=== PATIENT | female | born 1945 | race Caucasian/White ===

== ENCOUNTER → 2016-09-09 | Outpatient (CLI) | payer OTHER ==
[~2016-09-09] MED LIST: ACYCLOVIR400 MG PO; ALDACTONE25 MG; ALDACTONE25 MG PO; AMARYL1 M1 PO; AMARYL1 MG PO; AMIODARONE HCL200 MG PO; AMOXIL500 MG PO; ASMANEX HF100 MCG/Ac INH; ATIVAN1 MG PO; AUGMENTIN 875875 MG PO; AVPAK AZITHROM250 MG PO; BACTRIM DS 8001 TA1 PO; BACTROBAN CREAM15 GM T; BENZONATATE100 MG PO; BREO ELLIPTA 11 EACH IH; CALCIUM 500 MG; CETIRIZINE10 MG PO; CHOLECALCIFEROL; CIPRO500 MG PO; CORTISPORIN T; DECADRON4 MG PO; DEXAMETHASONE PO; DEXAMETHASONE4 MG PO; FLECAINIDE ACE150 M1 PO; FLUCONAZOLE200 MG PO; GEMFIBROZIL600 MG PO; GLUCOPHAGE500 MG PO; HYDROCODONE BIT1 T11 PO; KEFLEX500 MG PO; LASIX20 MG PO; LISINOPRIL5 MG; LISINOPRIL5 MG PO; LOPRESSOR50 MG PO; MAGNESIUM OXID400 MG PO; METFORMIN500 MG; MULTAQ400 MG PO; MULTI VIT; MULTIVITAMIN1 CTB; NYSTATIN100000 U/G TP; OFLOXACIN 10 ML10 M1 OP; ONGLYZA5 MG PO; OXYCONTIN10 M1 PO; OXYCONTIN10 MG PO; OYSTER CALCIUM500 M1; POMALYST PO; POTASSIUM CHLO10 ME4 PO; PREDNISONE20 MG PO; PRILOSEC20 M2 PO; PROCHLORPERAZIN10 MG PO; REVLIMID25 MG PO; ROBITUSSIN AC 110 ML PO; SPIRONOLACTONE25 MG PO; TENORMIN25 MG PO; TOPROL XL25 MG PO; VICODIN 5/500 505 MG PO; VIT; VIT D3; VITAMIN B1100 MCG/ML IM; VITAMIN B11000 MCG/M IM; VITAMIN B125000 MCG PO; VITAMIN C1000 M5 PO; VITAMIN D2000 IU; VITAMIN D2000 IU PO; VITAMIN D31000 IU PO; VITAMIN D5000 IU; XANAX0.25 MG PO; XANAX0.5 MG PO; XARE20MG PO; ZOFRAN4 MG PO; ZYRTEC10 MG PO; [UNRECOGNIZED DRUG - OTHER] IJ; [UNRECOGNIZED DRUG - OTHER] PO
== END | disposition home or self-care (01) ==
LOC: CT 10:51
DX: J32.9 Chronic sinusitis, unspecified (principal)

== ENCOUNTER 2016-11-08 11:18 | Emergency (ER) | payer OTHER ==
[~2016-11-08] VITALS: Ht 165.1 cm; Wt 112.5 kg
[2016-11-08 12:02] LABS: HEMATOCRIT 30.3 % (37.0-47.0); HEMOGLOBIN 9.9 g/dl (12.0-16.0); MEAN CELL VOLUME 97.1 fl (81.0-99.0); MEAN CORPUSCULAR HGB 31.7 pg (27.0-31.0); MEAN CORPUSCULAR HGB CONC 32.7 g/dl (33.0-37.0); MEAN PLATELET VOLUME 10.3 fl (9.6-12.3); PLATELET COUNT AUTOMATED 134 10*3/uL (130-400); RED BLOOD COUNT 3.12 10*6/uL (4.10-5.10); RED CELL DISTRI WIDTH 16.2 % (0-14.5); WHITE BLOOD COUNT 2.2 10*3/uL (4.8-10.8)
[2016-11-08 12:24] LABS: ALBUMIN 3.1 gm/dl (3.1-4.5); ALKALINE PHOSPHATASE 112 U/L (45-117); ATYPICAL LYMPHS 1 % (0-0); BASOPHILS 1 % (0-1); BILIRUBIN, TOTAL 0.6 mg/dl (0.2-1.0); BUN 9 mg/dl (7-24); CARBON DIOXIDE 29 mmol/L (21-32); CHLORIDE 103 mmol/L (98-107); EOSINOPHILS 1 % (1-4); EST GLOM FILT AFRICAN AMERICAN > 60 ml/min; GLUCOSE 94 mg/dL (65-99); LYMPHOCYTE # 0.2 10*3/uL (1.3-4.4); MAGNESIUM 1.7 mg/dL (1.5-2.1); METAMYELOCYTES 1 % (0-0); MONOCYTE # 0.3 10*3/uL (0.1-1.0); MYELOCYTES 2 % (0-0); NEUTROPHIL # 1.6 10*3/uL (2.3-7.9); NEUTROPHILS 72 % (47-73); POTASSIUM 3.5 mmol/L (3.5-5.1); SGOT/AST 24 IU/L (3-35); SGPT/ALT 22 U/L (12-78); SODIUM 139 mmol/L (136-145); TOTAL CELLS COUNTED 100 #CELLS; TOTAL PROTEIN 6.2 gm/dL (6.4-8.2)
[2016-11-08 12:25] LABS: PLATELET SUFFICIENCY LOW (NORMAL)
[2016-11-08 12:26] LABS: OVALOCYTES FEW
[2016-11-08 12:35] LABS: TROPONIN I < 0.015 ng/ml (<0.045)
[2016-11-08] MEDS ORDERED: ZITHROMAX250 MG PO (13:13)
[2016-11-08] MEDS ORDERED: DELTASONE20 M1 PO (13:13)
== END 2016-11-08 13:14 | disposition home or self-care (01) ==
LOC: ED 11:18
PROVIDERS: Family Medicine Adult Medicine
DX: J40 Bronchitis, not specified as acute or chronic (principal); I48.91 Unspecified atrial fibrillation; Z90.89 Acquired absence of other organs; Z98.890 Other specified postprocedural states; Z79.899 Other long term (current) drug therapy

== ENCOUNTER → 2016-12-16 | Outpatient (CLI) | payer OTHER ==
[~2016-12-16] MED LIST changes: +DELTASONE20 M1 PO; +ZITHROMAX250 MG PO
== END | disposition home or self-care (01) ==
LOC: RAD 10:15
DX: J43.9 Emphysema, unspecified (principal); E11.9 Type 2 diabetes mellitus without complications; I11.0 Hypertensive heart disease with heart failure; I50.9 Heart failure, unspecified; I48.91 Unspecified atrial fibrillation; M47.894 Other spondylosis, thoracic region

== ENCOUNTER → 2017-03-21 | Day surgery (SDC) | payer OTHER ==
[~2017-03-21] VITALS: Ht 165.1 cm; Wt 108.0 kg
[~2017-03-21] MED LIST changes: +BREO ELLIPTA 11 EACH INH
--- NOTE | ~2017-03-21 | O ---
[place], [place] OPERATIVE NOTE NAME: CAESAR DALAL UNIT #: [id number] ROOM: DOCTOR: MAIKEL MARIN MD BIRTHDATE: [birth year] DOS: 03/21/2017 PREOPERATIVE DIAGNOSIS: Cataract, right eye. POSTOPERATIVE DIAGNOSIS: Cataract, right eye. OPERATION: Extracapsular cataract extraction by phacoemulsification with posterior chamber intraocular lens implantation, right eye. ANESTHESIA: Monitored standby. OPERATIVE FINDINGS AND PROCEDURE: 2% Xylocaine topical anesthetic gel was applied to the eye in the preop area. The patient was taken to the operating room and prepped and draped in the standard fashion for sterile intraocular surgery. A time out procedure was performed verifying correct patient, correct site and corrects lens with Reji Marin M.D. The operating microscope was swung into position and the lid speculum was inserted. Using a Keli paracentesis blade, a paracentesis was made through clear cornea. Viscoelastic was used to fill the anterior chamber. Using a metal keratome a 2.4 mm self-sealing clear corneal cataract incision was made temporally at the limbus. Using a pre-bent 25 gauge cystotome needle, a standard continuous curvilinear capsulorrhexis was performed. The anterior capsule was removed with forceps. The lens nucleus was hydrodissected and phacoemulsified in the posterior chamber. Cortical material was removed with the irrigation aspiration hand piece and the posterior capsule was then polished with a curet under irrigation. The posterior chamber and capsular bag were filled with viscoelastic. A posterior chamber intraocular lens manufactured by: [employer], Model #[id number], and 14.5 diopters in strength were then inserted into the posterior chamber and within the capsular bag using the lens cartridge and injector system. Viscoelastic was removed using the irrigation aspiration handpiece. The anterior chamber was filled with balanced salt solution through the paracentesis. Both the paracentesis site and cataract incisions were hydrated with BSS and verified to be water-tight and self-sealing. Cefuroxime 1 mg/0.1 mL was injected into the anterior chamber through the paracentesis site. The incision checked to be water-tight using a Weck-Ryann sponge. The integrity of the cataract wound and ocular tension were checked. Lid speculum and drapes were removed. The patient was transferred from the operating room to the recovery room in satisfactory condition. [place], [place] OPERATIVE NOTE NAME: CAESAR DALAL UNIT #: [id number] ROOM: DOCTOR: MAIKEL MARIN MD BIRTHDATE: [birth year] MAIKEL MARIN MD CM:OPRECORD:OPERATIVE NOTE [id number] MAIKEL MARIN MD 03/21/17 1151 interface
[2017-03-21 08:59] VITALS: BP 124/67
[2017-03-21 09:50] VITALS: BP 113/53
[2017-03-21 10:05] VITALS: BP 121/63
[2017-03-21 10:20] VITALS: BP 113/53
== END | disposition home or self-care (01) ==
LOC: SDC 03-19 12:30
DX: H26.9 Unspecified cataract (principal); I11.0 Hypertensive heart disease with heart failure; I50.9 Heart failure, unspecified; J45.909 Unspecified asthma, uncomplicated; I48.91 Unspecified atrial fibrillation; Z79.01 Long term (current) use of anticoagulants; E11.9 Type 2 diabetes mellitus without complications; Z98.890 Other specified postprocedural states; Z79.84 Long term (current) use of oral hypoglycemic drugs; Z79.899 Other long term (current) drug therapy; Z85.79 Personal history of other malignant neoplasms of lymphoid, hematopoietic and related tissues; M19.90 Unspecified osteoarthritis, unspecified site; Z80.9 Family history of malignant neoplasm, unspecified; Z83.3 Family history of diabetes mellitus; Z82.49 Family history of ischemic heart disease and other diseases of the circulatory system

== ENCOUNTER → 2017-04-10 | Outpatient (CLI) | payer OTHER | END | disposition home or self-care (01) | LOC: RAD 09:43 | DX: I48.91 Unspecified atrial fibrillation (principal); J45.909 Unspecified asthma, uncomplicated; I50.9 Heart failure, unspecified; E11.9 Type 2 diabetes mellitus without complications ==

== ENCOUNTER → 2017-05-16 | Day surgery (SDC) | payer OTHER ==
[~2017-05-16] VITALS: Ht 165.1 cm; Wt 105.7 kg
[~2017-05-16] MED LIST changes: +ALLER-FLO15.8 ML NAS; +CARTIA XT240 MG PO; +MEGA BIOTIN10000 MCG PO
--- NOTE | ~2017-05-16 | O ---
[place], [place] OPERATIVE NOTE NAME: CAESAR DALAL UNIT #: [id number] ROOM: DOCTOR: MAIKEL MARIN MD BIRTHDATE: [birth year] DOS: 05/16/2017 PREOPERATIVE DIAGNOSIS: Cataract, left eye. POSTOPERATIVE DIAGNOSIS: Cataract, left eye. OPERATION: Extracapsular cataract extraction by phacoemulsification with posterior chamber intraocular lens implantation, left eye. ANESTHESIA: Monitored standby. OPERATIVE FINDINGS AND PROCEDURE: 2% Xylocaine topical anesthetic gel was applied to the eye in the preop area. The patient was taken to the operating room and prepped and draped in the standard fashion for sterile intraocular surgery. A time out procedure was performed verifying correct patient, correct site and corrects lens with Reji Marin M.D. The operating microscope was swung into position and the lid speculum was inserted. Using a Keli paracentesis blade, a paracentesis was made through clear cornea. Viscoelastic was used to fill the anterior chamber. Using a metal keratome a 2.4 mm self-sealing clear corneal cataract incision was made temporally at the limbus. Using a pre-bent 25 gauge cystotome needle, a standard continuous curvilinear capsulorrhexis was performed. The anterior capsule was removed with forceps. The lens nucleus was hydrodissected and phacoemulsified in the posterior chamber. Cortical material was removed with the irrigation aspiration hand piece and the posterior capsule was then polished with a curet under irrigation. The posterior chamber and capsular bag were filled with viscoelastic. A posterior chamber intraocular lens manufactured by: [employer], Model #[id number], and 14.0 diopters in strength were then inserted into the posterior chamber and within the capsular bag using the lens cartridge and injector system. Viscoelastic was removed using the irrigation aspiration handpiece. The anterior chamber was filled with balanced salt solution through the paracentesis. Both the paracentesis site and cataract incisions were hydrated with BSS and verified to be water-tight and self-sealing. Cefuroxime 1 mg/0.1 mL was injected into the anterior chamber through the paracentesis site. The incision checked to be water-tight using a Weck-Ryann sponge. The integrity of the cataract wound and ocular tension were checked. Lid speculum and drapes were removed. The patient was transferred from the operating room to the recovery room in satisfactory condition. [place], [place] OPERATIVE NOTE NAME: CAESAR DALAL UNIT #: [id number] ROOM: DOCTOR: MAIKEL MARIN MD BIRTHDATE: [birth year] MAIKEL MARIN MD CM:OPRECORD:OPERATIVE NOTE [id number] MAIKEL MARIN MD 05/16/17 1158 interface
[2017-05-16 08:00] VITALS: BP 139/51
[2017-05-16 09:10] VITALS: BP 132/55
[2017-05-16 09:25] VITALS: BP 122/57
[2017-05-16 09:40] VITALS: BP 129/52
== END | disposition home or self-care (01) ==
LOC: SDC 05-09 09:30
DX: E11.36 Type 2 diabetes mellitus with diabetic cataract (principal); I11.0 Hypertensive heart disease with heart failure; I50.9 Heart failure, unspecified; J45.909 Unspecified asthma, uncomplicated; H40.9 Unspecified glaucoma; Z85.89 Personal history of malignant neoplasm of other organs and systems; I48.91 Unspecified atrial fibrillation; E11.40 Type 2 diabetes mellitus with diabetic neuropathy, unspecified; M19.90 Unspecified osteoarthritis, unspecified site; Z98.890 Other specified postprocedural states; Z90.49 Acquired absence of other specified parts of digestive tract; Z83.3 Family history of diabetes mellitus; Z82.49 Family history of ischemic heart disease and other diseases of the circulatory system; Z80.9 Family history of malignant neoplasm, unspecified

== ENCOUNTER → 2017-08-07 | Outpatient (CLI) | payer OTHER | END | disposition home or self-care (01) | LOC: MAMMO 16:39 | DX: Z12.31 Encounter for screening mammogram for malignant neoplasm of breast (principal) ==

== ENCOUNTER 2017-10-18 20:14 | Inpatient (IN) | payer OTHER ==
[~2017-10-18] VITALS: Ht 165.1 cm; Wt 97.2 kg
[~2017-10-18 20:14] MED LIST changes: +PRILOSEC20 M1 PO; -PRILOSEC20 M2 PO; -VITAMIN D31000 IU PO; +VITAMIN D31000 UNI1 PO
[2017-10-18 20:20] VITALS: BP 118/34
[2017-10-18 20:54] VITALS: BP 114/43
[2017-10-18 21:01] LABS: BASO % 0.3 % (0.0-1.0); EOS % 0.2 % (1.0-4.0); HEMATOCRIT 31.8 % (37.0-47.0); HEMOGLOBIN 10.3 g/dl (12.0-16.0); LYMPH # 0.5 10*3/uL (1.3-4.4); LYMPH % 8.2 % (27.0-41.0); MEAN CELL VOLUME 95.2 fl (81.0-99.0); MEAN CORPUSCULAR HGB 30.8 pg (27.0-31.0); MEAN CORPUSCULAR HGB CONC 32.4 g/dl (33.0-37.0); MEAN PLATELET VOLUME 9.6 fl (9.6-12.3); MONO # 0.4 10*3/uL (0.1-1.0); MONO % 5.9 % (3.0-9.0); NEUT # 5.2 10*3/uL (2.3-7.9); NEUT % 84.4 % (47.0-73.0); PLATELET COUNT AUTOMATED 121 10*3/uL (130-400); RED BLOOD COUNT 3.34 10*6/uL (4.10-5.10); RED CELL DISTRI WIDTH 18.2 % (0-14.5); WHITE BLOOD COUNT 6.1 10*3/uL (4.8-10.8)
[2017-10-18 21:12] LABS: ACT PARTIAL THROMBO TIME 21.6 SECONDS (20.8-31.5)
[2017-10-18 21:18] LABS: ALBUMIN 3.1 gm/dl (3.1-4.5); ALKALINE PHOSPHATASE 92 U/L (45-117); BUN 10 mg/dl (7-24); CHLORIDE 97 mmol/L (98-107); CREATININE 0.73 mg/dL (0.55-1.02); POTASSIUM 4.1 mmol/L (3.5-5.1); SGOT/AST 10 IU/L (3-35); SGPT/ALT 26 U/L (12-78); SODIUM 131 mmol/L (136-145); TOTAL PROTEIN 5.7 gm/dL (6.4-8.2)
[2017-10-18 21:21] LABS: TROPONIN I < 0.015 ng/ml (<0.045)
[2017-10-18 21:25] VITALS: BP 116/44
[2017-10-18] MEDS ORDERED: IBUPROFEN600 MG PO (21:46)
[2017-10-18] MEDS ORDERED: ZOFRAN4 MG PO (21:47)
[2017-10-18] MEDS ORDERED: DIGOXIN125 MCG PO (21:55)
[2017-10-18] MEDS ORDERED: METOPROLOL25 MG PO (21:56)
[2017-10-18] MEDS ORDERED: COLACE CLEAR50 MG PO (21:57)
[2017-10-18] MEDS ORDERED: PREDNISONE20 M1 PO (21:58)
[2017-10-18] MEDS ORDERED: SULFATRIM 800-120 ML PO (22:01)
[2017-10-18] MEDS ORDERED: LOPERAMIDE HCL2 MG PO (22:04)
[2017-10-18] MEDS ORDERED: ACETAMINOPHEN325 M2 PO (22:05)
[2017-10-18 22:20] VITALS: BP 127/36
[2017-10-18] MEDS ORDERED: LIPITOR10 MG PO (23:41)
[2017-10-19] VITALS: BP 119/43
[2017-10-19 05:53] LABS: BASO % 0.5 % (0.0-1.0); EOS % 0.5 % (1.0-4.0); HEMATOCRIT 31.3 % (37.0-47.0); HEMOGLOBIN 9.9 g/dl (12.0-16.0); LYMPH # 0.6 10*3/uL (1.3-4.4); LYMPH % 15.1 % (27.0-41.0); MEAN CELL VOLUME 95.7 fl (81.0-99.0); MEAN CORPUSCULAR HGB 30.3 pg (27.0-31.0); MEAN CORPUSCULAR HGB CONC 31.6 g/dl (33.0-37.0); MEAN PLATELET VOLUME 10.4 fl (9.6-12.3); MONO # 0.3 10*3/uL (0.1-1.0); MONO % 8.8 % (3.0-9.0); NEUT # 2.7 10*3/uL (2.3-7.9); NEUT % 72.6 % (47.0-73.0); PLATELET COUNT AUTOMATED 122 10*3/uL (130-400); RED BLOOD COUNT 3.27 10*6/uL (4.10-5.10); RED CELL DISTRI WIDTH 18.4 % (0-14.5); WHITE BLOOD COUNT 3.7 10*3/uL (4.8-10.8)
[2017-10-19 06:16] LABS: ALBUMIN 2.9 gm/dl (3.1-4.5); ALKALINE PHOSPHATASE 89 U/L (45-117); BUN 8 mg/dl (7-24); CHLORIDE 99 mmol/L (98-107); CHOLESTEROL 183 mg/dL (<200); CREATININE 0.74 mg/dL (0.55-1.02); FREE T4 0.75 ng/dl (0.76-1.46); HDL CHOLESTEROL 82 mg/dl (40-60); LDL CHOLESTEROL 78 mg/dL (9-159); PHOSPHOROUS 2.3 mg/dL (2.5-4.9); POTASSIUM 3.9 mmol/L (3.5-5.1); SGOT/AST 10 IU/L (3-35); SGPT/ALT 23 U/L (12-78); SODIUM 133 mmol/L (136-145); TOTAL PROTEIN 5.5 gm/dL (6.4-8.2); TRIGLYCERIDES 113 mg/dl (<150); VLDL CHOLESTEROL 23 mg/dL (6-40)
[2017-10-19 07:39] LABS: VITAMIN D, 25-HYDROXY 42.4 ng/mL (30-100)
[2017-10-19 08:00] VITALS: BP 105/55
[2017-10-19 12:00] VITALS: BP 103/62
[2017-10-19 12:15] LABS: BILIRUBIN 1+ (NEGATIVE); BLOOD NEGATIVE (NEGATIVE); CLARITY CLOUDY (CLEAR); COLOR YELLOW (YELLOW); GLUCOSE NEGATIVE (NEGATIVE); KETONE 2+ (NEGATIVE); LEUKO ESTERASE TRACE (NEGATIVE); NITRITE NEGATIVE (NEGATIVE); PH 5.5 (5.0-9.0); SPECIFIC GRAVITY >= 1.030 (1.005-1.030); UROBILINOGEN 0.2 E.U./dl (0.2-1.0)
[2017-10-19 12:24] LABS: CALCIUM OXALATE CRYSTALS 1+; URIC ACID CRYSTALS 4+
[2017-10-19 12:25] LABS: BACTERIA 1+; EPITHELIAL CELLS 0-2; MUCOUS TRACE; RBC 0-2 rbc/hpf (0-2)
[2017-10-19 16:00] VITALS: BP 112/66
[2017-10-19 20:00] VITALS: BP 115/69
[2017-10-20] VITALS: BP 81/45
[2017-10-20 06:20] LABS: BASO % 0.3 % (0.0-1.0); EOS % 0.6 % (1.0-4.0); HEMATOCRIT 32.9 % (37.0-47.0); HEMOGLOBIN 10.4 g/dl (12.0-16.0); LYMPH # 0.5 10*3/uL (1.3-4.4); LYMPH % 12.8 % (27.0-41.0); MEAN CELL VOLUME 97.1 fl (81.0-99.0); MEAN CORPUSCULAR HGB 30.7 pg (27.0-31.0); MEAN CORPUSCULAR HGB CONC 31.6 g/dl (33.0-37.0); MEAN PLATELET VOLUME 10.4 fl (9.6-12.3); MONO # 0.3 10*3/uL (0.1-1.0); MONO % 8.9 % (3.0-9.0); NEUT # 2.7 10*3/uL (2.3-7.9); NEUT % 74.9 % (47.0-73.0); PLATELET COUNT AUTOMATED 121 10*3/uL (130-400); RED BLOOD COUNT 3.39 10*6/uL (4.10-5.10); RED CELL DISTRI WIDTH 18.6 % (0-14.5); WHITE BLOOD COUNT 3.6 10*3/uL (4.8-10.8)
[2017-10-20 06:49] LABS: ALKALINE PHOSPHATASE 85 U/L (45-117); BUN 7 mg/dl (7-24); CHLORIDE 102 mmol/L (98-107); CREATININE 0.74 mg/dL (0.55-1.02); PHOSPHOROUS 2.6 mg/dL (2.5-4.9); POTASSIUM 3.7 mmol/L (3.5-5.1); SGOT/AST 12 IU/L (3-35); SGPT/ALT 23 U/L (12-78); SODIUM 136 mmol/L (136-145); TOTAL PROTEIN 5.5 gm/dL (6.4-8.2)
[2017-10-20 08:00] VITALS: BP 103/62
[2017-10-20 12:00] VITALS: BP 125/95
[2017-10-20 16:00] VITALS: BP 133/86
[2017-10-20 20:00] VITALS: BP 91/52
[2017-10-21] VITALS: BP 99/43
[2017-10-21 06:19] LABS: BASO % 0.3 % (0.0-1.0); EOS % 0.3 % (1.0-4.0); HEMOGLOBIN 9.4 g/dl (12.0-16.0); MEAN CELL VOLUME 96.7 fl (81.0-99.0); MEAN CORPUSCULAR HGB 31.3 pg (27.0-31.0); MEAN CORPUSCULAR HGB CONC 32.4 g/dl (33.0-37.0); MEAN PLATELET VOLUME 10.4 fl (9.6-12.3); MONO # 0.4 10*3/uL (0.1-1.0); MONO % 7.7 % (3.0-9.0); NEUT # 4.2 10*3/uL (2.3-7.9); NEUT % 73.5 % (47.0-73.0); PLATELET COUNT AUTOMATED 139 10*3/uL (130-400); RED CELL DISTRI WIDTH 19.1 % (0-14.5); WHITE BLOOD COUNT 5.8 10*3/uL (4.8-10.8)
[2017-10-21 06:56] LABS: BUN 8 mg/dl (7-24); CHLORIDE 104 mmol/L (98-107); CREATININE 0.78 mg/dL (0.55-1.02); POTASSIUM 3.9 mmol/L (3.5-5.1); SODIUM 134 mmol/L (136-145)
[2017-10-21 07:07] LABS: DIGOXIN 0.35 ng/ml (0.8-2.0)
[2017-10-21 08:00] VITALS: BP 104/64
[2017-10-21 09:09] VITALS: BP 96/43
[2017-10-21 12:00] VITALS: BP 104/76
[2017-10-21 16:00] VITALS: BP 108/51
[2017-10-21 20:00] VITALS: BP 109/86
[2017-10-22] VITALS: BP 152/76
[2017-10-22 06:06] LABS: BASO % 0.4 % (0.0-1.0); EOS % 0.4 % (1.0-4.0); HEMATOCRIT 28.6 % (37.0-47.0); HEMOGLOBIN 9.3 g/dl (12.0-16.0); LYMPH # 0.9 10*3/uL (1.3-4.4); LYMPH % 18.6 % (27.0-41.0); MEAN CELL VOLUME 95.7 fl (81.0-99.0); MEAN CORPUSCULAR HGB 31.1 pg (27.0-31.0); MEAN CORPUSCULAR HGB CONC 32.5 g/dl (33.0-37.0); MEAN PLATELET VOLUME 10.6 fl (9.6-12.3); MONO # 0.4 10*3/uL (0.1-1.0); MONO % 7.9 % (3.0-9.0); NEUT # 3.3 10*3/uL (2.3-7.9); PLATELET COUNT AUTOMATED 154 10*3/uL (130-400); RED BLOOD COUNT 2.99 10*6/uL (4.10-5.10); RED CELL DISTRI WIDTH 18.9 % (0-14.5); WHITE BLOOD COUNT 4.6 10*3/uL (4.8-10.8)
[2017-10-22 06:07] LABS: BUN 6 mg/dl (7-24); CHLORIDE 104 mmol/L (98-107); CREATININE 0.63 mg/dL (0.55-1.02); POTASSIUM 3.3 mmol/L (3.5-5.1); SODIUM 136 mmol/L (136-145)
[2017-10-22 08:00] VITALS: BP 132/56
[2017-10-22 12:00] VITALS: BP 139/68
[2017-10-22 16:00] VITALS: BP 119/97
[2017-10-22 20:00] VITALS: BP 122/55
[2017-10-23 07:07] LABS: BASO % 0.3 % (0.0-1.0); EOS % 0.9 % (1.0-4.0); HEMATOCRIT 30.1 % (37.0-47.0); HEMOGLOBIN 9.6 g/dl (12.0-16.0); LYMPH # 0.8 10*3/uL (1.3-4.4); LYMPH % 22.8 % (27.0-41.0); MEAN CELL VOLUME 95.3 fl (81.0-99.0); MEAN CORPUSCULAR HGB 30.4 pg (27.0-31.0); MEAN CORPUSCULAR HGB CONC 31.9 g/dl (33.0-37.0); MEAN PLATELET VOLUME 10.4 fl (9.6-12.3); MONO # 0.3 10*3/uL (0.1-1.0); MONO % 10.3 % (3.0-9.0); NEUT # 2.1 10*3/uL (2.3-7.9); NEUT % 64.8 % (47.0-73.0); PLATELET COUNT AUTOMATED 157 10*3/uL (130-400); RED BLOOD COUNT 3.16 10*6/uL (4.10-5.10); RED CELL DISTRI WIDTH 18.9 % (0-14.5); WHITE BLOOD COUNT 3.3 10*3/uL (4.8-10.8)
[2017-10-23 07:44] LABS: BUN 5 mg/dl (7-24); CHLORIDE 102 mmol/L (98-107); CREATININE 0.61 mg/dL (0.55-1.02); PHOSPHOROUS 2.3 mg/dL (2.5-4.9); SODIUM 132 mmol/L (136-145)
[2017-10-23 08:00] VITALS: BP 131/66
[2017-10-23 12:00] VITALS: BP 96/48
[2017-10-23] MEDS ORDERED: TOPROL XL50 M1 PO (14:13)
[2017-10-23 16:00] VITALS: BP 101/76
== END 2017-10-23 18:18 | disposition short-term general hospital (02) | DRG 640 ==
LOC: ED 20:14 → 4E 21:38 → EDHOLD 21:38 → 4E 22:00
PROVIDERS: Family Medicine; Internal Medicine; Internal Medicine Nephrology; Student in an Organized Health Care Education/Training Program
DX: E86.0 Dehydration (principal); B59 Pneumocystosis; E44.0 Moderate protein-calorie malnutrition; C90.00 Multiple myeloma not having achieved remission; Z94.84 Stem cells transplant status; D64.81 Anemia due to antineoplastic chemotherapy; E87.1 Hypo-osmolality and hyponatremia; E83.39 Other disorders of phosphorus metabolism; I48.0 Paroxysmal atrial fibrillation; E87.8 Other disorders of electrolyte and fluid balance, not elsewhere classified; T45.1X5A Adverse effect of antineoplastic and immunosuppressive drugs, initial encounter; I10 Essential (primary) hypertension; E53.8 Deficiency of other specified B group vitamins; D69.6 Thrombocytopenia, unspecified; D72.810 Lymphocytopenia; E11.65 Type 2 diabetes mellitus with hyperglycemia; W18.30XA Fall on same level, unspecified, initial encounter; E66.01 Morbid (severe) obesity due to excess calories; Z68.35 Body mass index [BMI] 35.0-35.9, adult; Z95.0 Presence of cardiac pacemaker; Z90.49 Acquired absence of other specified parts of digestive tract; Z79.01 Long term (current) use of anticoagulants; Z79.51 Long term (current) use of inhaled steroids; Z79.84 Long term (current) use of oral hypoglycemic drugs; Z79.899 Other long term (current) drug therapy; Z83.3 Family history of diabetes mellitus; Z80.8 Family history of malignant neoplasm of other organs or systems; Z82.49 Family history of ischemic heart disease and other diseases of the circulatory system; Y93.89 Activity, other specified; Y92.89 Other specified places as the place of occurrence of the external cause; Y99.8 Other external cause status

== ENCOUNTER 2017-11-04 18:20 | Emergency (ER) | payer OTHER ==
[~2017-11-04] VITALS: Wt 83.9 kg
[~2017-11-04 18:20] MED LIST changes: +ACETAMINOPHEN325 M2 PO; +COLACE CLEAR50 MG PO; +DIGOXIN125 MCG PO; +IBUPROFEN600 MG PO; +LIPITOR10 MG PO; +LOPERAMIDE HCL2 MG PO; +METOPROLOL25 MG PO; +PREDNISONE20 M1 PO; +SULFATRIM 800-120 ML PO; +TOPROL XL50 M1 PO
[2017-11-04 22:05] LABS: BILIRUBIN NEGATIVE (NEGATIVE); BLOOD NEGATIVE (NEGATIVE); CLARITY SL CLOUDY (CLEAR); COLOR YELLOW (YELLOW); GLUCOSE TRACE (NEGATIVE); KETONE NEGATIVE (NEGATIVE); LEUKO ESTERASE NEGATIVE (NEGATIVE); NITRITE NEGATIVE (NEGATIVE); PH 7.5 (5.0-9.0); SPECIFIC GRAVITY 1.015 (1.005-1.030); UROBILINOGEN 0.2 E.U./dl (0.2-1.0)
[2017-11-04 22:16] LABS: ABG BASE EXCESS 1.1 mmol/L (-2.0-2.0); ABG HCO3 23.6 mmol/l (22-26); ABG O2 SATURATION 92.6 % (95-97); ARTERIAL BLOOD GAS PCO2 31.7 mmHg (35-45); ARTERIAL BLOOD GAS PH 7.484 (7.35-7.45)
[2017-11-04 22:20] LABS: BACTERIA 4+
[2017-11-04 22:21] LABS: HEMATOCRIT 21.6 % (37.0-47.0); HEMOGLOBIN 6.9 g/dl (12.0-16.0); MEAN CELL VOLUME 100.9 fl (81.0-99.0); MEAN CORPUSCULAR HGB 32.2 pg (27.0-31.0); MEAN CORPUSCULAR HGB CONC 31.9 g/dl (33.0-37.0); MEAN PLATELET VOLUME 9.7 fl (9.6-12.3); PLATELET COUNT AUTOMATED 80 10*3/uL (130-400); RED BLOOD COUNT 2.14 10*6/uL (4.10-5.10); WHITE BLOOD COUNT 5.9 10*3/uL (4.8-10.8)
[2017-11-04 22:57] LABS: TOTAL CELLS COUNTED 100 #CELLS
[2017-11-04 22:58] LABS: BURR CELLS MODERATE; CHLORIDE 122 mmol/L (98-107); PLATELET SUFFICIENCY LOW (NORMAL); SODIUM 147 mmol/L (136-145)
[2017-11-04 22:59] LABS: ALKALINE PHOSPHATASE 38 U/L (45-117); BUN 4 mg/dl (7-24); CREATININE < 0.15 mg/dL (0.55-1.02); OVALOCYTES FEW; SGOT/AST 4 IU/L (3-35); SGPT/ALT 10 U/L (12-78); TOTAL PROTEIN 1.8 gm/dL (6.4-8.2)
[2017-11-04 23:01] LABS: POTASSIUM 1.8 mmol/L (3.5-5.1)
[2017-11-04 23:11] LABS: ACT PARTIAL THROMBO TIME 20.5 SECONDS (20.8-31.5)
== END 2017-11-05 02:05 | disposition short-term general hospital (02) ==
LOC: ED 18:20
PROVIDERS: Emergency Medicine; Student in an Organized Health Care Education/Training Program
DX: I48.91 Unspecified atrial fibrillation (principal); E11.9 Type 2 diabetes mellitus without complications; I10 Essential (primary) hypertension; E83.51 Hypocalcemia; E87.6 Hypokalemia; D50.0 Iron deficiency anemia secondary to blood loss (chronic); E78.00 Pure hypercholesterolemia, unspecified; E66.9 Obesity, unspecified; Z95.0 Presence of cardiac pacemaker; Z79.899 Other long term (current) drug therapy; Z87.01 Personal history of pneumonia (recurrent); Z90.89 Acquired absence of other organs; Z98.890 Other specified postprocedural states